=== PATIENT | male | born 1955 | race Caucasian/White ===

== ENCOUNTER 2022-09-25 13:38 | Emergency (ER) | payer OTHER ==
[~2022-09-25] VITALS: Ht 187.9 cm; Wt 95.3 kg
[2022-09-25] MEDS ORDERED: PREDNISONE50 MG PO (14:01)
== END 2022-09-25 14:15 | disposition home or self-care (01) ==
LOC: ED 13:38
DX: S32.010A Wedge compression fracture of first lumbar vertebra, initial encounter for closed fracture (principal); S39.012A Strain of muscle, fascia and tendon of lower back, initial encounter; X50.0XXA Overexertion from strenuous movement or load, initial encounter; Y93.89 Activity, other specified; Y92.89 Other specified places as the place of occurrence of the external cause; Y99.8 Other external cause status